=== PATIENT | male | born 1975 | race American Indian/Alaskan Native ===

== ENCOUNTER 2020-10-13 23:07 | Emergency (ER) | payer MEDICAID ==
[2020-10-14 00:30] LABS: Alanine Aminotransferase 27 units/L (7-56); Albumin 4.7 g/dL (3.9-5); BUN/Creatinine Ratio 11; Blood Urea Nitrogen 12 mg/dL (9-20); Calcium 9.3 mg/dL (8.4-10.2); Hemolysis Index 5
[2020-10-14 00:43] VITALS: BP 133/94
--- NOTE | 2020-10-14 00:43 | Emergency Department Report ---
ED Chest Pain HPI - General Chief Complaint: Dizziness Stated Complaint: CHEST PAIN PUI?: No Time Seen by Provider: 10/14/20 00:15 Source: patient Mode of arrival: Stretcher Limitations: No Limitations - History of Present Illness Initial Comments: Patient is a 45-year-old male who presents emergency room with complaints of chest pain, lightheadedness and dizziness. Patient states his symptoms been going on for 2 days. Patient states he is also having anxiety. Patient states he is also having elevated blood pressure when his attacks happen. Patient his symptoms started 3 days ago and he is been evaluated in a different ER yesterday and had a full cardiac work-up and was medically cleared and discharged home. Patient states he had an EKG yesterday as well. Patient states that he has had anxiety in the past and his primary care gave him Lexapro but he does not like the side effect so he stopped taking it. Patient states he is visiting here from [place]. Patient states he travels for work. Patient states that there for 3 weeks. Patient states his chest pain is left-sided. Patient states his chest pain is a 4 out of 10. Patient states his chest pain is better with rest and worse with movement. Patient states that he worked out today and did an hour of cardio and did not have any chest pain during the cardio. Patient denies shortness of breath. Patient denies fever or chills. Patient denies cough. Patient states that his dizziness was better while he was working out. Patient states that his dizziness only happens when he has a anxiety attack. Patient denies recent travel. Patient denies recent international travel. Patient denies exposure to the novel coronavirus. Patient denies sick contacts. Patient denies fever and chills. Patient denies cough. Patient denies diarrhea. Patient denies coming in contact with anybody with symptoms of the novel coronavirus. MD Complaint: chest pain -: Sudden Onset: during rest Pain Location: substernal, left chest Severity scale (0 -10): 4 Quality: aching Consistency: constant Improves With: rest Worsens With: movement re: denies: nausea, vomting, diaphoresis, dyspnea, sense of impending doom Other Symptoms: denies: cough, fever, syncope, rash, acid taste in mouth, leg swelling, palpitations, burping Treatments Prior to Arrival: none Aspirin use within the Past 7 Days: (0) No - Related Data On Oral Contraceptives: No Previous Rx's Medication Instructions Recorded Last Taken Type ALPRAZolam [Xanax TAB] 0.25 mg PO BID PRN #6 tab 10/14/20 Unknown Rx Allergies Allergy/AdvReac Type Severity Reaction Status Date / Time No Known Allergies Allergy Unverified 10/13/20 23:33 Heart Score - HEART Score History: Slightly suspicious EKG: Normal Age: 45-65 Risk factors: No known risk factors Troponin: < normal limit HEART Score: 1 - EKG Read Time Time EKG Completed: 23:46 EKG Read Time: 23:48 ED Review of Systems ROS: Stated complaint: CHEST PAIN Other details as noted in HPI Constitutional: denies: chills, fever Eyes: denies: eye pain, eye discharge, vision change ENT: denies: ear pain, throat pain Respiratory: denies: cough, shortness of breath, wheezing Cardiovascular: chest pain. denies: palpitations Endocrine: no symptoms reported Gastrointestinal: denies: abdominal pain, nausea, diarrhea Genitourinary: denies: urgency, dysuria Musculoskeletal: denies: back pain, joint swelling, arthralgia Skin: denies: rash, lesions Neurological: as per HPI. denies: headache, weakness, paresthesias Psychiatric: as per HPI, anxiety. denies: depression Hematological/Lymphatic: denies: easy bleeding, easy bruising ED Past Medical Hx - Past Medical History Previous Medical History?: Yes Hx Hypertension: Yes Hx Psychiatric Treatment: Yes (Anxiety) - Surgical History Past Surgical History?: Yes Additional Surgical History: toe surgery - Family History Family history: no significant - Social History Smoking Status: Never Smoker Substance Use Type: None - Medications Home Medications: Home Medications Medication Instructions Recorded Confirmed Last Taken Type ALPRAZolam [Xanax TAB] 0.25 mg PO BID PRN #6 tab 10/14/20 Unknown Rx ED Physical Exam - General Limitations: No Limitations General appearance: alert, in no apparent distress - Head Head exam: Present: atraumatic, normocephalic - Eye Eye exam: Present: normal appearance, PERRL Pupils: Present: normal accommodation - ENT ENT exam: Present: mucous membranes moist - Neck Neck exam: Present: normal inspection - Respiratory Respiratory exam: Present: normal lung sounds bilaterally. Absent: respiratory distress - Cardiovascular Cardiovascular Exam: Present: regular rate, normal rhythm. Absent: systolic murmur, diastolic murmur, rubs, gallop - GI/Abdominal GI/Abdominal exam: Present: soft, normal bowel sounds - Rectal Rectal exam: Present: deferred - Extremities Exam Extremities exam: Present: normal inspection - Back Exam Back exam: Present: normal inspection - Neurological Exam Neurological exam: Present: alert, oriented X3 - Psychiatric Psychiatric exam: Present: normal affect, normal mood - Skin Skin exam: Present: warm, dry, intact, normal color. Absent: rash ED Course Vital Signs 10/13/20 23:31 Temperature 97.6 F Pulse Rate 86 Respiratory 18 Rate Blood Pressure 135/90 O2 Sat by Pulse 96 Oximetry - Reevaluation(s) Reevaluation #1: I discussed all results and clinical findings with patient. I discussed plan of care with patient. Patient agrees with plan of care. Patient is stable for discharge. Patient will be discharged home. Patient given discharge instructions. Patient voiced understanding of discharge instructions. Patient information was faxed over to her local cardiology group for further e valuation and treatment. 10/14/20 00:45 MAYNOR score - Maynor Score Age > 65: (0) No Aspirin use within the Past 7 Days: (0) No 3 or more CAD Risk Factors: (0) No 2 or more Angina events in past 24 hrs: (0) No Known CAD with more than 50% Stenosis: (0) No Elevated Cardiac Markers: (0) No ST Deviation Greater than 0.5mm: (0) No MAYNOR Score: 0 ED Medical Decision Making - Lab Data Result diagrams: 10/13/20 23:49 - EKG Data -: EKG Interpreted by Me EKG shows normal: sinus rhythm, axis, intervals, QRS complexes, ST-T waves Rate: normal - Medical Decision Making Patient is a 45-year-old male presents emergency room with complaints of chest pain, lightheadedness. Patient states that the symptoms for 2 days. Patient ran on a treadmill with no issues with chest pain for 1 hour today. Patient brought in by EMS. Patient was evaluated another ER for the same symptoms of di zziness, lightheadedness and chest pain yesterday. Patient was negative troponin was negative yesterday in the ER. Patient had labs done which were essentially unremarkable. Patient's troponin was negative. Patient had an EKG which was negative for acute findings showed normal sinus rhythm. I personally reviewed the EKG. Patient clinical symptoms are consistent with panic attack and anxiety. However the patient did present to the emergency room with chest pain and his admission with fax over to local cardiology group for further evaluation and stratification. Patient's chest pain work-up as epic is low risk. Patient heart score is 1. Patient had minimal risk factors. Patient stable for discharge. Patient require further emergency medical services. Patient not require inpatient service. Patient is discharged home. - Differential Diagnosis Anxiety, dizziness, lightheadedness, elevated blood pressure, panic attack, Critical care attestation.: If time is entered above; I have spent that time in minutes in the direct care of this critically ill patient, excluding procedure time. ED Disposition Clinical Impression: Anxiety, Panic attack, Dizziness, Chest wall pain Chest pain Qualifiers: Chest pain type: unspecified Qualified Code(s): R07.9 - Chest pain, unspecified Disposition: DC-01 TO HOME OR SELFCARE Is pt being admited?: No Does the pt Need Aspirin: No Condition: Stable Instructions: Nonspecific Chest Pain, Adult, Chest Wall Pain, [id number], Panic Attack, Managing Anxiety, Adult, Dizziness, [id number], Costochondritis Additional Instructions: Patient to follow-up with primary care in 2 to 3 days. Patient to follow-up with exercise instruct in 2 to 3 days. Patient to rest. Patient to increase water. Patient to avoid strenuous exercise or heavy lifting until cleared by exercise instruct. Patient to take Tylenol or ibuprofen as needed for pain. Patient to take meds as directed. Patient to return to the ER if condition worsens, c hanges or new symptoms arise. Information has been faxed over to her local cardiology group for further evaluation of your chest pain. Prescriptions: ALPRAZolam [Xanax TAB] 0.25 mg PO BID PRN #6 tab PRN Reason: Anxiety Referrals: JESSICA ARREDONDO MD [Primary Care Provider] - 2-3 Days MARRY LARSON MD [Staff Physician] - 2-3 Days AYDE SPARROW MD [Staff Physician] - 2-3 Days Time of Disposition: 00:50
[2020-10-14 00:47] LABS: Basophils % (Auto) 0.4 % (0.0-1.8); Eosinophils # (Auto) 0.3 K/mm3 (0.0-0.4); Hematocrit 48.1 % (35.5-45.6); Hemoglobin 16.3 gm/dl (11.8-15.2); Lymphocytes % (Auto) 34.8 % (13.4-35.0); Mean Corpuscular HGB Conc 34 % (32-34); Mean Corpuscular Volume 94 fl (84-94); Monocytes # (Auto) 0.4 K/mm3 (0.0-0.8); Monocytes % (Auto) 7.5 % (0.0-7.3); Platelet Count 160 K/mm3 (140-440)
--- NOTE | 2020-10-14 10:49 | Electrocardiograph Report ---
[facility] Test Date: 2020-10-13 Test Time: 23:46:51 Pat Name: OPAL DAVIDSON Department: Room: Gender: M [employer] Supervisor: ANIL : 1975 Requested By: ALDAIR LIVE III Order Number: [id number] Reading MD: Sherwin Weaver Measurements Intervals [place] Rate: 80 P: 85 DC: 136 QRS: 80 QRSD: 85 T: 69 QT: 379 QTc: 437 Interpretive Statements Sinus rhythm No previous ECG available for comparison Electronically Signed On 10-14-2020 10:48:47 EDT by Sherwin Weaver
== END 2020-10-14 01:12 | disposition home or self-care (01) ==
LOC: ED 23:07
DX: F41.0 Panic disorder [episodic paroxysmal anxiety] (principal); F41.9 Anxiety disorder, unspecified; R07.89 Other chest pain; I10 Essential (primary) hypertension; Z98.890 Other specified postprocedural states; Z79.899 Other long term (current) drug therapy
CPT/HCPCS: 36415; 80053; 84484; 85025; 93005; 99283